=== PATIENT | female | born 1970 | race Caucasian/White ===

== ENCOUNTER 2018-12-04 14:56 | Emergency (ER) | payer MEDICAID, OTHER ==
[~2018-12-04] VITALS: Ht 152.4 cm; Wt 61.4 kg
[2018-12-04 15:24] VITALS: BP 115/50
[2018-12-04 16:14] LABS: BASOPHILS % (AUTO) 0.9 % (0-1); LYMPHOCYTES # (AUTO) 1.2 X10'3 (1.1-4.8); LYMPHOCYTES % (AUTO) 24.6 % (21-51); MEAN CORPUSCULAR HEMOGLOBIN 15.5 PG (27.0-31.0); MEAN CORPUSCULAR HGB CONC 28.8 % (33.0-36.5); MEAN CORPUSCULAR VOLUME 53.8 FL (78-98); MEAN PLATELET VOLUME 7.6 FL (7.4-10.4); MONOCYTES # (AUTO) 0.4 X10'3 (0-0.9); NEUTROPHILS # (AUTO) 3.1 X10'3 (1.8-7.7); NEUTROPHILS % (AUTO) 65.5 % (42-75); PLATELET COUNT 104 X10'3 (140-440); RED CELL DISTRIBUTION WIDTH 24.5 % (11.5-14.5); WHITE BLOOD COUNT 4.7 X10'3 (4.5-11.0)
[2018-12-04 16:24] LABS: HEMOGLOBIN 6.4 g/dl (12.0-16.0)
[2018-12-04 16:36] LABS: ALANINE AMINOTRANSFERASE 16 U/L (12-78); ALBUMIN 3.9 G/DL (3.4-5.0); ALKALINE PHOSPHATASE 44 IU/L (46-116); ANION GAP 8 (8-16); ASPARTATE AMINO TRANSFERASE 13 U/L (10-37); BILIRUBIN,TOTAL 0.4 MG/DL (0.1-1.0); BLOOD UREA NITROGEN 9 MG/DL (7-18); BUN/CREATININE RATIO 16.1 (6.6-38.0); CALCIUM 8.8 MG/DL (8.5-10.1); CHLORIDE 102 MMOL/L (99-107); CREATININE 0.56 MG/DL (0.40-0.90); GLUCOSE 96 MG/DL (70-104); POTASSIUM 3.5 MMOL/L (3.5-5.1); SODIUM 139 MMOL/L (135-145); TOTAL CARBON DIOXIDE 28.7 MMOL/L (24-32); TOTAL PROTEIN 7.8 G/DL (6.4-8.2); eGFR > 90 ML/MIN
[2018-12-04 16:57] LABS: ANISOCYTOSIS 3+; HYPOCHROMASIA 3+; MICROCYTOSIS 3+; PLATELET ESTIMATE DECREASED; POLYCHROMASIA 1+
[2018-12-04 16:58] LABS: ELLIPTOCYTES FEW; TEAR DROP CELLS FEW
--- NOTE | 2018-12-04 18:41 | NUR ---
WENT TO START IV ON PT, RT AC BLEW, ADVISED PT THAT I WAS UNABLE TO GET THAT IV AND WOULD NEED TO TRY LT ARM. PT STATED, "WERE DONE" ASKED PT WHAT SHE REFERING TO, "WERE NOT STAYING, I WILL NOT BE POKED AGAIN". LET PT KNOW THAT I WOULD ADVISE DR VERDE AND THAT HE WOULD COME AND FOLLOW UP WITH HER. AFTER LETTING DR VERDE KNOW OF CIRCUMSTANCES, PT GOT DRESSED AND WALKED OUT OF ER BEFORE DR VERDE COULD SPEAK WITH HER.
== END 2018-12-04 18:44 | disposition left against medical advice (07) ==
LOC: ER 14:57
DX: D64.9 Anemia, unspecified (principal); R53.1 Weakness; Z88.0 Allergy status to penicillin; Z88.2 Allergy status to sulfonamides; Z88.5 Allergy status to narcotic agent; Z88.8 Allergy status to other drugs, medicaments and biological substances
CPT/HCPCS: 36415; 80053; 85025; 86885; 86900; 86901; 86920; 99283